=== PATIENT | female | born 1980 | race Two or more races ===

== ENCOUNTER → 2025-01-15 | Outpatient (CLI) | payer MEDICAID, SELFPAY ==
--- NOTE | 2025-01-15 08:30 | XR_ITS ---
Examination: Breast ultrasound complete, bilateral Date and time of exam: January 15, 2025 0819 hours INDICATIONS: Mammogram 2023 12 mm focal asymmetry upper left breast anterior depth Technique: Real-time grayscale ultrasonographic imaging bilateral breasts, including all 4 quadrants as well as nipple retroareolar and axillary regions. Findings: Sonographic images right and left breast demonstrated no cystic or solid masses IMPRESSION: BI-RADS Category 1: Negative studies
--- NOTE | 2025-01-15 09:45 | XR_ITS ---
Examination: Screening digital mammography, bilateral Computer aided detection 3-D breast Tomosynthesis, bilateral Date and time of exam: January 15, 2025, 0836 hours Comparison August 05, 2023 Indication: Screening Technique: Nonmagnified MLO, CC views of the breasts to been obtained, reconstructed from 3-D Tomosynthesis images. R2 computer aided detection program utilized for evaluation of suspicious masses and/or abnormal calcifications. 3-D Tomosynthesis images obtained. Findings: The breasts are heterogeneously dense, which may obscure small masses Benign calcifications Stable asymmetry upper left breast anterior depth 3 cm from the nipple Impression: BI-RADS category II: Benign Findings. Recommend 1 year follow-up mammogram.
== END | disposition home or self-care (01) ==
PROVIDERS: PCP Physician Assistant Medical; Referring Provider Physician Assistant Medical; Visit Provider Physician Assistant Medical
DX: Z12.31 Encounter for screening mammogram for malignant neoplasm of breast (principal); R92.323 Mammographic fibroglandular density, bilateral breasts; R92.1 Mammographic calcification found on diagnostic imaging of breast
CPT/HCPCS: 76641; 77063; 77067

== ENCOUNTER 2025-04-14 18:26 | Emergency (ER) | payer MEDICAID, SELFPAY ==
[2025-04-14 18:27] VITALS: BMI 36.1
[2025-04-14 19:47] VITALS: BP 135/83; PULSE 87; RESP 20; TEMP 36.6; O2SAT 96
--- NOTE | 2025-04-14 19:56 | EDRME_ITS ---
Rapid Medical Screening Exam ON LICENSE OF [facility] Arrival date/time: 04/14/25 18:26 44F with history of cholecystectomy presents to ED with 1 day of upper ab pain and N/V. Patient denies diarrhea and dysuria. Chief Complaint: Abdominal Pain Vital signs: Vital Signs Temperature 98 F 04/14/25 19:47 Pulse Rate 87 04/14/25 19:47 Respiratory Rate 20 04/14/25 19:47 Blood Pressure 135/83 H 04/14/25 19:47 Pulse Oximetry (%) 96 04/14/25 19:47 Oxygen Delivery Method Room Air 04/14/25 19:47
[2025-04-14] MEDS: FAMOTIDINE 20 MG TABLET 40 MG PO (20:14)
[2025-04-14] MEDS: ONDANSETRON ODT 4 MG TABRAP PO (20:14)
[2025-04-14 20:43] LABS: Basophils # (Auto) 0.0 Thou/mm3 (0.0-0.2); Basophils % (Auto) 0 % (0-2.5); Eosinophils # (Auto) 0.0 Thou/mm3 (0.0-0.5); Eosinophils % (Auto) 0 % (0-10); Hematocrit 40.0 % (36.0-46.0); Hemoglobin 13.5 g/dL (12.0-16.0); Immature Granulocytes Auto 0.03 Thou/mm3 (0.00-0.00); Lymphocytes # (Auto) 1.9 Thou/mm3 (1.0-4.8); Lymphocytes % (Auto) 15 % (10-50); Mean Corpuscular HGB Conc 33.8 g/dl (31.0-37.0); Mean Corpuscular Hemoglobin 29.9 pg (25.0-35.0); Mean Corpuscular Volume 89 fL (80-100); Monocytes # (Auto) 0.4 Thou/mm3 (0.0-0.8); Monocytes % (Auto) 3 % (0-12); Neutrophils # (Auto) 10.3 Thou/mm3 (1.8-7.7); Neutrophils % (Auto) 81 % (37-80); Nucleated Red Blood Cell # 0.00 Thou/mm3 (0.00-0.00); Nucleated Red Blood Cell % 0 /100 WBC (0); Platelet Count 265 Thou/mm3 (140-440); RDW Standard Deviation 41.4 fL (36.4-46.3); Red Blood Count 4.51 Miln/mm3 (4.00-5.20); White Blood Count 12.8 Thou/mm3 (3.6-11.0)
[2025-04-14 20:53] LABS: Alanine Aminotransferase 16 U/L (10-49); Albumin, Serum 4.9 gm/dL (3.5-5.0); Albumin/Globulin Ratio 1.7 (1.2-2.2); Alkaline Phosphatase 80 U/L (46-116); Anion Gap 10 (7-16); Aspartate Amino Transferase 22 U/L (0-34); BUN/Creatinine Ratio 14 Ratio (12-20); Bilirubin,Total 0.6 mg/dL (0.3-1.2); Blood Urea Nitrogen 10 mg/dL (9-23); Calcium 9.7 mg/dL (8.3-10.6); Calcium (Corrected) 9.7 mg/dL (8.5-10.1); Carbon Dioxide 28.9 mMol/L (20.0-31.0); Chloride 101 mMol/L (98-107); Creatinine (Component) 0.7 mg/dL (0.6-1.3); Estimated Creatinine Clearance 99.6 mL/min (>60); Globulin 2.9 gm/dL (2.3-3.5); Glucose 111 mg/dL (74-106); Lipase 26 U/L (12-53); Osmolality,Calculated 279 (275-295); Potassium 4.2 mMol/L (3.4-5.1); Sodium 140 mMol/L (136-145); Total Protein 7.8 gm/dL (5.7-8.2); eGFR > 60 See Note
[2025-04-14 21:09] LABS: Collection Type, Urine Clean Catch
[2025-04-14 21:15] LABS: HCG Qualitative,Urine Negative
[2025-04-14 21:17] LABS: Bilirubin,Urine Negative (Negative); Blood,Urine Negative (Negative); Clarity,Urine Clear (Clear/Hazy); Color,Urine Lt-Yellow (Lt Yel-Yel); Culture Indicated,Urine Not Indicated; Glucose, Urine Negative (Negative); Ketones,Urine 3+ (Negative); Leukocyte Esterase,Urine Positive (Negative); Nitrite,Urine Negative (Negative); PH,Urine 6.5 (5.0-7.0); Protein,Urine Negative (Neg - Trace); RBC,Urine 10 /hpf (0-3); Specific Gravity,Urine 1.016 (1.001-1.035); Squamous Epithelial Cell,Urine 5 /hpf (0-5); Urobilinogen,Urine Negative mg/dL (0.0-1.0); WBC,Urine 2 /hpf (0-5)
[2025-04-14 22:50] VITALS: BP 136/83; PULSE 73; RESP 18; TEMP 36.7; O2SAT 98
--- NOTE | 2025-04-14 23:36 | EDNOTE_ITS ---
ED Abdominal Pain RME/HPI General Chief Complaint: Abdominal Pain Stated complaint: UPPER ABD PAIN WITH NAUSEA AND VOMITING Time seen by provider: 04/14/25 21:41 Arrival date/time: 04/14/25 18:26 RME / HPI RME / HPI narrative: 04/14/25 18:26 44F with history of cholecystectomy presents to ED with 1 day of upper ab pain and N/V. Patient denies diarrhea and dysuria. Dr. Fenton?s Main ED Evaluation: 44yo female presents to the ED for a chief complaint of epigastric pain x 1200. Patient describes her pain as burning in nature. No radiation or migration. Patient notes she has been burping a lot. Denies any N/V, fever, chills, or any other associated symptoms. PSH includes cholecystectomy. Patient has experienced similar symptoms in the past. NKA. Related Data Home Medications ?Medication ?Instructions ?Recorded ?Confirmed No Known Home Medications 03/17/2402/24 Allergies Allergy/AdvReac Type Severity Reaction Status Date / Time No Known Allergies Allergy Verified 04/14/25 18:29 Review of Systems Review of Systems Systems Reviewed: All systems reviewed, normal except as documented Past Medical History Past Medical History CARDIAC: Negative Cardiac Disorders or Congestive Heart Failure RESPIRATORY: Negative Chronic Obstructive Pulmonary Disease (COPD) or Asthma GENITOURINARY: Negative Renal Disease ENDOCRINE: Negative Diabetes Mellitus Type 1 or Diabetes Mellitus Type 2 HEMATOLOGIC: Negative Sickle Cell Disease Social History SMOKING STATUS: Never smoker ED Exam Narrative Physical exam: Generally patient is alert in no obvious distress, heart is regular rate and rhythm, lungs clear to auscultation equal bilaterally, abdomen soft bowel sounds present nondistended mild epigastric abdominal tenderness without rebound Course Quality Measures none Orders Category Date Time Status CBC Stat Lab 04/14/25 20:19 Completed CMP [Comprehensive Metabolic Panel] Stat Lab 04/14/25 20:19 Completed HCG Qualitative,Urine Stat Lab 04/14/25 21:03 Completed Lipase Stat Lab 04/14/25 20:19 Completed Urinalysis, C/S if Indicated Stat Lab 04/14/25 21:03 Completed Famotidine [Pepcid] Med 04/14/25 19:56 Discontinued 40 mg PO X1 ONE Lidocaine 2% Viscous [Xylocaine 2% Viscous] Med 04/14/25 23:43 Once 15 ml PO X1 ONE Ondansetron Odt [Zofran Odt] Med 04/14/25 19:56 Discontinued 4 mg PO X1 ONE mg Hyd/Al Hyd/Crow Susp [Maalox Susp] Med 04/14/25 23:43 Once 30 ml PO X1 ONE Vital Signs Vital signs: Vital Signs Temperature 98 F 04/14/25 19:47 Pulse Rate 87 04/14/25 19:47 Respiratory Rate 20 04/14/25 19:47 Blood Pressure 135/83 H 04/14/25 19:47 Pulse Oximetry (%) 96 04/14/25 19:47 Oxygen Delivery Method Room Air 04/14/25 19:47 Abdominal Pain [facility] Narrative [facility] Narrative:: Scribe Attestation: 04/14/25 - Virginia Barrientos am scribing for and in the presence of Dr. Fenton. Patient has had a cholecystectomy in the past. There is no leukocytosis. Electrolytes and LFTs as well as lipase are all within normal limits. Urine is not infected. Patient will receive a GI cocktail consisting of 30 cc of Maalox and 15 cc of viscous lidocaine. She will be restarted on her Protonix. She may use [id number] Maalox and/or Mylanta or Gaviscon as needed for pain. Avoid hot spicy greasy fatty foods. Follow-up with her doctor. Return to ER as needed or if condition worsens. Patient data External records reviewed:: [facility] previous records (Per chart review, patient was seen here on 08/08/18 for abdominal pain.) Clinical information provided by:: patient Social determinants that could affect healthcare access:: none Patient has the following chronic illnesses:: none How is presenting disease/condition affected by chronic disease/condition?: no chronic disease Evaluation data The following diagnostics were reviewed and interpreted by me:: lab results Lab and/or radiology exams considered but not ordered:: none Interpretation Summary: See [facility] Medications / Prescriptions Medications or Prescriptions considered but not ordered:: none Medication administrations:: Medication Administration History Discontinued Medications Famotidine (Famotidine 20 Mg Tablet) 40 mg PO X1 ONE Stop: 04/14/25 19:57 Last Admin: 04/14/25 20:14 Dose: 40 mg Documented By: LAURA Ondansetron HCl (Ondansetron Odt 4 Mg Tabrap) 4 mg PO X1 ONE; Protocol Stop: 04/14/25 19:57 Last Admin: 04/14/25 20:14 Dose: 4 mg Documented By: LAURA see above Consultations Consultation(s) initiated? (list below): No Diagnosis Differential diagnosis abdominal pain: other (See MDM) Most likely diagnosis given after review of the tests above:: see clinical impression below Admission Indicated Admission indicated?: not indicated Admission Request Was there a request for admission?: No Disposition Plan Disposition Plan: Discharge Discharge Attestation Discharge Attestation: The patient and all family members were given an opportunity to ask questions and understood the discharge instructions. Discharge instructions specifically effects, indications for sooner follow up or return to the emergency department, and the expected course of current diagnosis. Patient condition: Stable Discharge Plan Plan Patient Disposition: HOME (Self Care) Prescriptions/Referrals Prescriptions/Med Rec: No Action No Known Home Medications Referrals: Shirley Day FNP [Primary Care Provider] - In 1 week Problem List Clinical Impression: Gastritis Patient/Caregiver Discharge Instructions Education Materials: ED Gastritis (Adult) Additional Instructions: Avoid hot spicy greasy fatty foods. You may use [id number] Maalox Mylanta or Gaviscon as needed for pain. Protonix as prescribed. Follow-up with your doctor as needed for further treatment and evaluation. Print Language: Citizen Of [place] Stand Alone Forms: [employer] Award Info., Patient Portal Info Letter
[2025-04-14] MEDS: LIDOCAINE VISCOUS 2% 15 ML UDC PO (23:50)
[2025-04-14] MEDS: MG HYD/AL HYD/SIME (Maalox Reg) SUSP 30 ML UDC PO (23:50)
== END 2025-04-14 23:59 | disposition home or self-care (01) ==
PROVIDERS: Physician Assistant; Emergency Provider Emergency Medicine; PCP Student in an Organized Health Care Education/Training Program
DX: K29.70 Gastritis, unspecified, without bleeding (principal); Z90.49 Acquired absence of other specified parts of digestive tract
CPT/HCPCS: 36415; 80053; 81001; 81025; 83690; 85025; 99282; J3490; Q0162; A9270

== ENCOUNTER 2025-04-15 01:15 | Emergency (ER) | payer MEDICAID, SELFPAY ==
[2025-04-15 01:15] VITALS: BMI 36.1
[2025-04-15 01:32] VITALS: BP 135/87; PULSE 74; RESP 18; TEMP 36.6; O2SAT 97
--- NOTE | 2025-04-15 01:36 | XR_ITS ---
Examination: CT abdomen with intravenous contrast CT pelvis with intravenous contrast 2-D coronal reconstructions 2-D sagittal reconstructions Date and time of exam: April 15, 2025, 0345 hours INDICATION: Worsening abdominal pain today. CTDI: vol (mGy) 10.8 DLP: (mGycm) 576 Technique: Multiple axial sections of the abdomen and pelvis have been obtained. 64 slice high-resolution scanner used. 3 mm axial sections have been obtained, post intravenous injection 60 cc [id number] 2-D sagittal, coronal reconstructions obtained. Low dose protocols were performed. One or more of the following dose reduction techniques were used; automated exposure control, adjustment of the mA and/or KV according to patient size, use of iterative reconstruction technique. Findings: No visualized liver or splenic lesion Absent gallbladder No pancreatic or adrenal mass. No renal or ureteral calculi, no hydronephrosis Significantly fluid distended small bowel loops in the left abdomen Fat-containing umbilical hernia 15 mm Normal appendix Free fluid in the pelvis Urinary bladder intact Moderate osteopenia IMPRESSION: Significantly fluid distended small bowel loops in the left abdomen, differential would include small bowel obstruction Consider small bowel series follow-up Free fluid in the pelvis, recommend pelvic sonography follow-up
--- NOTE | 2025-04-15 01:37 | EDRME_ITS ---
Rapid Medical Screening Exam [facility] Arrival date/time: 04/15/25 01:15 44F with history of cholecystectomy presents to ED with worsening upper ab pain and N/V. Patient states GI cocktail did not help symptoms. Chief Complaint: Abdominal Pain Vital signs: Vital Signs Temperature 97.8 F 04/15/25 01:32 Pulse Rate 74 04/15/25 01:32 Respiratory Rate 18 04/15/25 01:32 Blood Pressure 135/87 H 04/15/25 01:32 Pulse Oximetry (%) 97 04/15/25 01:32 Oxygen Delivery Method Room Air 04/15/25 01:32
[2025-04-15] MEDS: MORPHINE SULF INJ 4 MG/ML VIAL IV (02:07)
[2025-04-15] MEDS: ONDANSETRON INJ 2 MG/ML INJ 2 ML 4 MG IVP (02:07)
--- NOTE | 2025-04-15 05:15 | PD.EDABDPN ---
ED Abdominal Pain RME/HPI General Chief Complaint: Abdominal Pain Stated complaint: ABDOMINAL PAIN Arrival date/time: 04/15/25 01:15 RME / HPI RME / HPI narrative: 04/15/25 01:15 44F with history of cholecystectomy presents to ED with worsening upper ab pain and N/V. Patient states GI cocktail did not help symptoms. Dr. Fenton?s Main ED Evaluation: 44yo female with a history of cholecystectomy presents to the ED for a chief complaint of worsening epigastric pain. Patient was seen here earlier tonight and was discharged home. Patient states her symptoms did resolve after taking the GI cocktail, but her pain returned and has had N/V, so she came back in for further evaluation. Patient denies any fever, chills, or any other associated symptoms. NKA. Related Data Previous Rx's ?Medication ?Instructions ?Recorded dicyclomine 20 mg tablet 20 mg PO QID PRN abdominal pain 04/15/25 #20 tabs ondansetron HCl 4 mg tablet 4 mg PO Q6H PRN nausea and 04/15/25 vomiting #20 tabs Allergies Allergy/AdvReac Type Severity Reaction Status Date / Time No Known Allergies Allergy Verified 04/14/25 18:29 Review of Systems Review of Systems Systems Reviewed: All systems reviewed, normal except as documented ED Exam Narrative Physical exam: Generally patient is alert in no obvious distress, heart regular rate and rhythm, lungs clear to auscultation equal bilaterally, abdomen soft bowel sounds present nondistended mild epigastric abdominal tenderness without obvious rebound, skin is warm pale and dry neurologic exam [place] Coma Scale of 15 Course Quality Measures none Orders Category Date Time Status CT Screening NOW Care 04/15/25 01:36 Active Insert IV NOW Care 04/15/25 01:[address] abdomen pelvis w con Stat Exams 04/15/25 01:36 Taken Morphine* Inj Med 04/15/25 01:36 Discontinued 4 mg IV X1 ONE Ondansetron Inj [Zofran Inj] Med 04/15/25 01:36 Discontinued 4 mg IVP X1 ONE Vital Signs Vital signs: Vital Signs Temperature 97.8 F 04/15/25 01:32 Pulse Rate 74 04/15/25 01:32 Respiratory Rate 18 04/15/25 01:32 Blood Pressure 135/87 H 04/15/25 01:32 Pulse Oximetry (%) 97 04/15/25 01:32 Oxygen Delivery Method Room Air 04/15/25 01:32 Abdominal Pain MDM MDM Narrative MDM Narrative:: Scribe Attestation: 04/15/25 Virginia Nichols am scribing for and in the presence of Dr. Fenton. Patient was seen earlier this evening. Please see those labs. CT scan done of the abdomen and pelvis during this visit showed mild dilatation of small bowel loops in the left upper abdomen likely jejunal loops with air-fluid levels which may represent partial small bowel obstruction versus ileus. With that interpretation by the radiologist I spoke with general surgeon on-call, Dr. Yuen who believes the patient can go home. I will give the patient Bentyl 20 mg IM here in the emergency room. Patient will be discharged on Bentyl and Zofran to be taken as prescribed. Clear liquid diet and advance as tolerated. Return to ER as needed or if condition worsens. Patient data External records reviewed:: [facility] previous records (Per chart review, patient was seen here earlier tonight for the same complaint.) Clinical information provided by:: patient Social determinants that could affect healthcare access:: none Patient has the following chronic illnesses:: none How is presenting disease/condition affected by chronic disease/condition?: no chronic disease Evaluation data The following diagnostics were reviewed and interpreted by me:: radiology exam(s) Lab and/or radiology exams considered but not ordered:: none Interpretation Summary: CT scan of the abdomen and pelvis with intravenous contrast (axial sections with sagittal and coronal reformats) April 15, 2025 0345 hours Clinical History: Abdomen pain. Radiation Dose: Total exam DLP 577 mGy/cm No prior study is available for comparison. Findings: The lung bases are clear. Fatty infiltration of the liver is noted. The gallbladder is surgically absent. The pancreas, spleen, kidneys and adrenals are unremarkable. Mildly dilatation of small bowel loops in the left upper abdomen likely jejunal loops with air fluid levels. The appendix is within normal limits (coronal images [id number]). There is no mesenteric or retroperitoneal adenopathy. A small fat-containing umbilical hernia is present. The urinary bladder is unremarkable. The uterus and adnexa are unremarkable. Minimal amount of free fluid is seen in the pelvis. There is no free air. The osseous structures are unremarkable. Impression: Mildly dilatation of small bowel loops in the left upper abdomen likely jejunal loops with air fluid levels, which may represent partial small bowel obstruction versus ileus. Recommend clinical correlation and follow-up. This report has been electronically signed by: Tank Mclaughlin MD. Medications / Prescriptions Medications or Prescriptions considered but not ordered:: none Medication administrations:: Medication Administration History Discontinued Medications Morphine Sulfate (Morphine Sulf Inj 4 Mg/Ml Vial) 4 mg IV X1 ONE Stop: 04/15/25 01:37 Last Admin: 04/15/25 02:07 Dose: 4 mg Documented By: TRUDY Ondansetron HCl (Ondansetron Inj 2 Mg/Ml Inj 2 Ml) 4 mg IVP X1 ONE; Protocol Stop: 04/15/25 01:37 Last Admin: 04/15/25 02:07 Dose: 4 mg Documented By: TRUDY see above Consultations Consultation(s) initiated? (list below): Yes Diagnosis Differential diagnosis abdominal pain: other (See MDM) Most likely diagnosis given after review of the tests above:: see clinical impression below Admission Indicated Admission indicated?: not indicated Admission Request Was there a request for admission?: No Disposition Plan Disposition Plan: Discharge Discharge Attestation Discharge Attestation: The patient and all family members were given an opportunity to ask questions and understood the discharge instructions. Discharge instructions specifically effects, indications for sooner follow up or return to the emergency department, and the expected course of current diagnosis. Patient condition: Stable Discharge Plan Plan Patient Disposition: HOME (Self Care) Prescriptions/Referrals Prescriptions/Med Rec: New ondansetron HCl 4 mg tablet 4 mg PO Q6H PRN (Reason: nausea and vomiting) Qty: 20 0RF dicyclomine 20 mg tablet 20 mg PO QID PRN (Reason: abdominal pain) Qty: 20 0RF Referrals: Shirley Day FNP [Primary Care Provider] - In 1 week Problem List Clinical Impression: Ileus Patient/Caregiver Discharge Instructions Education Materials: Ileus Additional Instructions: Medication as prescribed. Clear liquid diet and advance as tolerated. Return to ER as needed or if condition worsens. Print Language: [place] Stand Alone Forms: [employer] Award Info., Patient Portal Info Letter
[2025-04-15] MEDS: DICYCLOMINE INJ 10 MG/ML 2ML VIAL 20 MG IM (05:43)
[2025-04-15 05:57] VITALS: BP 97/68; PULSE 70; RESP 18; TEMP 36.6; O2SAT 99
== END 2025-04-15 05:59 | disposition home or self-care (01) ==
PROVIDERS: Emergency Provider Emergency Medicine; PCP Student in an Organized Health Care Education/Training Program
DX: K56.7 Ileus, unspecified (principal)
CPT/HCPCS: 74177; 96372; 96374; 99284; A4649; J0500; J2270; J2405; Q9967